=== PATIENT | male | born 1985 | race Caucasian/White ===

== ENCOUNTER 2016-07-06 13:16 | Emergency (ER) | payer SELFPAY ==
[~2016-07-06] VITALS: Ht 172.7 cm; Wt 79.4 kg
[~2016-07-06 13:16] MED LIST: ALBU17AE13 IH
[2016-07-06 13:34] VITALS: BP_SYST 125
[2016-07-06] MEDS ORDERED: BACITRACIN 1 GM OINT TP ONE (13:45)
[2016-07-06] MEDS ORDERED: LIDOCAINE/EPI 1% 1:100000 20 ML VIAL IJ ONE (13:45)
[2016-07-06] MEDS ORDERED: DIPH-TET-PERTUS Vaccine 0.5 ML VIAL (ADACEL) IM ONE (14:00)
[2016-07-06] MEDS ORDERED: IBUPROFEN 800 MG TABLET PO ONE (14:15)
[2016-07-06 14:32] VITALS: BP_SYST 122
== END 2016-07-06 14:32 | disposition home or self-care (01) ==
LOC: SED 13:16
DX: S51.812A Laceration without foreign body of left forearm, initial encounter (principal); X58.XXXA Exposure to other specified factors, initial encounter; Y93.89 Activity, other specified; Y99.8 Other external cause status; Y92.89 Other specified places as the place of occurrence of the external cause
CPT/HCPCS: 90715; 96372; 99284

== ENCOUNTER 2016-07-14 17:56 | Emergency (ER) | payer MEDICAID ==
[~2016-07-14] VITALS: Ht 172.7 cm; Wt 79.4 kg
[2016-07-14 18:06] VITALS: BP 127/71; PULSE 76; RESP 18; TEMP 98.3; O2SAT 96
[2016-07-14] MEDS ORDERED: BACITRACIN 1 GM OINT TP ONE (18:45)
[2016-07-14 18:53] VITALS: BP 127/71; PULSE 76; RESP 18; TEMP 98.3; O2SAT 96
== END 2016-07-14 18:53 | disposition home or self-care (01) ==
LOC: SED 17:56
DX: S51.812D Laceration without foreign body of left forearm, subsequent encounter (principal); J45.909 Unspecified asthma, uncomplicated; W22.8XXD Striking against or struck by other objects, subsequent encounter; Y92.89 Other specified places as the place of occurrence of the external cause; Y99.8 Other external cause status
CPT/HCPCS: 99282

== ENCOUNTER 2018-05-14 21:02 | Emergency (ER) | payer MEDICAID, OTHER ==
[~2018-05-14] VITALS: Ht 172.7 cm; Wt 86.2 kg
[2018-05-14 21:12] VITALS: BP_SYST 154
[2018-05-14] MEDS ORDERED: KETOROLAC TROMETHAMINE 30 MG VIAL IM ONE (22:15)
[2018-05-14] MEDS ORDERED: HYDROcodone/ACETAMIN 5-325 MG TAB (NORCO/ VICODIN) PO ONE (23:00)
[2018-05-14 23:47] VITALS: BP_SYST 154
== END 2018-05-14 23:50 | disposition home or self-care (01) ==
LOC: SED 21:02
DX: S39.011A Strain of muscle, fascia and tendon of abdomen, initial encounter (principal); J45.909 Unspecified asthma, uncomplicated; X58.XXXA Exposure to other specified factors, initial encounter; Y93.89 Activity, other specified; Y92.89 Other specified places as the place of occurrence of the external cause; Y99.8 Other external cause status
CPT/HCPCS: 96372; 99283; J1885

== ENCOUNTER 2018-12-23 10:30 | Emergency (ER) | payer SELFPAY ==
[~2018-12-23] VITALS: Ht 172.7 cm; Wt 86.2 kg
[2018-12-23 10:38] VITALS: BP_SYST 133
[2018-12-23 11:05] VITALS: BP_SYST 133
== END 2018-12-23 11:05 | disposition home or self-care (01) ==
LOC: SED 10:30
DX: L30.9 Dermatitis, unspecified (principal); J45.909 Unspecified asthma, uncomplicated; Z79.899 Other long term (current) drug therapy
CPT/HCPCS: 99283

== ENCOUNTER 2019-02-23 06:15 | Emergency (ER) | payer SELFPAY ==
[~2019-02-23] VITALS: Ht 172.7 cm; Wt 85.3 kg
[2019-02-23 06:17] VITALS: BP_SYST 151
--- NOTE | 2019-02-23 06:20 | NUR ---
Patient to ER bed 5 to gown for evaluation. Side rails up.
--- NOTE | 2019-02-23 06:25 | NUR ---
ER at bedside examining patient.
--- NOTE | 2019-02-23 06:25 | NUR ---
Pt brought in by mother. Pt awake, alert, oriented x4. pt brought to the ed by his mother. Pt chief complaint of chest tightness, episodic shortness of breath and wheezes resolved after productive cough, and a tightness that radiates from scalp to back of neck and shoulders, then across chest. pt denies nausea, vomiting, diarrhea, any other medical complaint at this time. Pt denies syncope. Pt states that he has been unable to sleep due to discomfort, and these symptoms began approx 18 hours ago. Pt vital signs stable. resting in ED bed, no acute distress noted at this time.
--- NOTE | 2019-02-23 06:40 | NUR ---
Xray bedside performing CXR
[2019-02-23] MEDS ORDERED: ALBU8.5H8 INH (06:58)
[2019-02-23] MEDS ORDERED: ARIP5TAB10 PO (06:58)
[2019-02-23] MEDS ORDERED: LORazepam 2 MG/ML VIAL IM ONE (07:15)
[2019-02-23 07:26] VITALS: BP_SYST 140
--- NOTE | 2019-02-23 07:26 | NUR ---
Patient given written and verbal discharge instructions and verbalizes understanding. ER MD discussed with patient the results and treatment provided. Patient in stable condition. ID arm band removed. No IV No RX given. Patient educated on pain management and to follow up with PMD. Pain Scale 0/10. Opportunity for questions provided and answered.
== END 2019-02-23 07:26 | disposition home or self-care (01) ==
LOC: SED 06:15
DX: F41.0 Panic disorder [episodic paroxysmal anxiety] (principal); R03.0 Elevated blood-pressure reading, without diagnosis of hypertension; Z71.6 Tobacco abuse counseling; J45.909 Unspecified asthma, uncomplicated; Z87.891 Personal history of nicotine dependence
CPT/HCPCS: 71045; 93005; 96372; 99283; J2060

== ENCOUNTER 2019-02-23 22:14 | Emergency (ER) | payer SELFPAY ==
[~2019-02-23] VITALS: Ht 172.7 cm; Wt 85.3 kg
[~2019-02-23 22:14] MED LIST changes: +ALBU8.5H8 INH; +ARIP5TAB10 PO
[2019-02-23 22:21] VITALS: BP_SYST 129
--- NOTE | 2019-02-23 22:28 | NUR ---
Patient triaged and placed in waiting room. VSS and patient appears in no acute distress at this time. Accompanied by mother, awaiting available bed, and MD notified of need for MSE.
--- NOTE | 2019-02-23 23:16 | NUR ---
Patient to ER bed 4 to gown for evaluation. Side rails up. Report given to Rossy RAMIREZ.
[2019-02-23] MEDS ORDERED: KETOROLAC TROMETHAMINE 60 MG/2 ML VIAL IM ONE (23:30)
--- NOTE | 2019-02-23 23:30 | NUR ---
Pt presents to ER with c/o head pressure, cough and fever. Pt A&Ox4. Pt states pressure in both sides of head. Pt states pain is 7/10. Pt states pain is exacerbated when pt sits up. Pt states pain radiates to chest intermittently. Pt states he was here this morning for same symptoms. Pt states cough for 2 days. Pt states intermittent fever. Pt temperature 99.4 via temperal scan upon assessment. Will continue to monitor.
--- NOTE | 2019-02-23 23:44 | NUR ---
ER Dr. Mcwilliams at bedside examining patient.
[2019-02-24 00:03] VITALS: BP_SYST 120
--- NOTE | 2019-02-24 00:03 | NUR ---
Note undone in EDM - 02/24/19 at 0600 by JOSE MARTIN Patient given written and verbal discharge instructions and verbalizes understanding. ER MD Mcwilliams discussed with patient the results and treatment provided. Patient in stable condition. ID arm band removed. Rx of given. Patient educated on pain management and to follow up with PMD. Pain Scale 0/10. Opportunity for questions provided and answered. Medication side effect fact sheet provided.
--- NOTE | 2019-02-24 00:03 | NUR ---
Patient given written and verbal discharge instructions and verbalizes understanding. ER MD Mcwilliams discussed with patient the results and treatment provided. Patient in stable condition. ID arm band removed. Rx of atarax, prednisone, and motrin given. Patient educated on pain management and to follow up with PMD. Pain Scale 0/10. Opportunity for questions provided and answered. Medication side effect fact sheet provided.
== END 2019-02-24 00:03 | disposition home or self-care (01) ==
LOC: SED 22:14
DX: J11.1 Influenza due to unidentified influenza virus with other respiratory manifestations (principal); J45.909 Unspecified asthma, uncomplicated; R51 Headache; R05 Cough
CPT/HCPCS: 96372; 99283; J1885; 93005

== ENCOUNTER 2019-02-28 07:09 | Emergency (ER) | payer SELFPAY ==
[~2019-02-28] VITALS: Ht 172.7 cm; Wt 88.5 kg
[~2019-02-28 07:09] MED LIST changes: -ALBU17AE13 IH
--- NOTE | 2019-02-28 07:25 | NUR ---
PT TO WR.
[2019-02-28 07:28] VITALS: BP_SYST 129
--- NOTE | 2019-02-28 09:30 | NUR ---
Patient to ER bed 7 to gown for evaluation. Side rails up. Report given to MARY RAMIREZ.
[2019-02-28] MEDS ORDERED: IPRATROPIUM/ALBUTEROL SULFATE 3 ML AMPUL.NEB (DUONEB) INH ONE ×2 (09:45→11:15)
--- NOTE | 2019-02-28 09:45 | NUR ---
Pt c/o unresolving HERNÁNDEZ. Pt has no acute distress noted.
[2019-02-28] MEDS ORDERED: KETOROLAC TROMETHAMINE 60 MG/2 ML VIAL IM ONE (10:15)
--- NOTE | 2019-02-28 10:30 | NUR ---
Pt ambulating around room, speaking in elevated voice with family at bedside with s/s of pain.
[2019-02-28] MEDS ORDERED: traMADol HCL HCL 50 MG TABLET (ULTRAM) PO ONE (11:15)
--- NOTE | 2019-02-28 12:00 | NUR ---
Pt tolerated medication well.
--- NOTE | 2019-02-28 12:13 | NUR ---
Patient given written and verbal discharge instructions and verbalizes understanding. ER MD discussed with patient the results and treatment provided. Patient in stable condition. ID arm band removed. Rx of Mortin, Promethazine, Amoxicillin, Tramdol given. Patient educated on pain management and to follow up with PMD. Pain Scale 3/10. Opportunity for questions provided and answered. Medication side effect fact sheet provided.
[2019-02-28 12:20] VITALS: BP_SYST 130
== END 2019-02-28 12:20 | disposition home or self-care (01) ==
LOC: SED 07:09
DX: J02.8 Acute pharyngitis due to other specified organisms (principal); B96.89 Other specified bacterial agents as the cause of diseases classified elsewhere
CPT/HCPCS: 71045; 94640; 96372; 99284; J1885; J7620

== ENCOUNTER 2021-12-07 13:24 | Emergency (ER) | payer SELFPAY ==
[~2021-12-07] VITALS: Ht 172.7 cm; Wt 109.8 kg
--- NOTE | 2021-12-07 13:30 | NUR ---
Placed in room 4 . Placed on front desk monitor, blood pressure machine and pulse oximeter. To gown for exam. Side rails up. Report given to JAMES MEDINA.
[2021-12-07 13:31] VITALS: BP_SYST 128
--- NOTE | 2021-12-07 13:32 | NUR ---
ER DR. PRICE EXAMINING PT
--- NOTE | 2021-12-07 13:33 | NUR ---
RT AT THE BEDSIDE FOR BREATHING TX
--- NOTE | 2021-12-07 13:35 | NUR ---
RECEIVED PT FROM JAMES AUGUSTINE. 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 PT HAS TACHYPNEA, EXPIRATORY WHEEZE NOTED. PT IS AAOX4, NORMAL S1S2, ON R/A. DENIES N/V/D/C. PERPHERAL PULSES NORMAL, NO EDEMA, SKIN WARM, INTACT. DENIES PAIN. SIDERAILS UP X2, BED IN LOWEST POSITION.
[2021-12-07] MEDS ORDERED: IPRATROPIUM BROM 0.5 MG/2.5 ML VIAL.NEB (ATROVENT) INH ONE ×2 (13:36→13:45)
[2021-12-07] MEDS ORDERED: ALBUTEROL SULFATE 0.083% 2.5 MG/3 ML VIAL.NEB INH ONE (13:45)
[2021-12-07] MEDS ORDERED: predniSONE 20 MG TABLET PO ONE (13:45)
--- NOTE | 2021-12-07 14:30 | NUR ---
SCHEDULED MED GIVEN ORDERED AND TOLERATED WELL.
[2021-12-07] MEDS ORDERED: ALBMDI INH (15:17)
[2021-12-07] MEDS ORDERED: PRED20TA PO (15:17)
--- NOTE | 2021-12-07 15:30 | NUR ---
Patient given written and verbal discharge instructions and verbalizes understanding. ER MD discussed with patient the results and treatment provided. Patient in stable condition. ID arm band removed. Rx of PREDNISONE/ALBUTEROL given. Patient educated on pain management and to follow up with PMD. Pain Scale 0/10. Opportunity for questions provided and answered. Medication side effect fact sheet provided.
[2021-12-07 15:40] VITALS: BP_SYST 135
== END 2021-12-07 15:40 | disposition home or self-care (01) ==
LOC: SED 13:24
DX: J45.901 Unspecified asthma with (acute) exacerbation (principal); R06.02 Shortness of breath; Z79.899 Other long term (current) drug therapy
CPT/HCPCS: 71045; 94640; 99283; J7512; J7613

== ENCOUNTER 2023-07-30 11:21 | Emergency (ER) | payer MEDICAID ==
[~2023-07-30] VITALS: Ht 172.7 cm; Wt 82.6 kg
[~2023-07-30 11:21] MED LIST changes: +ALBMDI INH; +PRED20TA PO
[2023-07-30 11:31] VITALS: BP_SYST 149; PULSE 110; RESP 20; TEMP 98.3; O2SAT 98
[2023-07-30 12:07] LABS: BASOPHILS # (AUTO) 0.1 K/uL (0.0-0.2); BASOPHILS % (AUTO) 0.8 % (0.0-2.0); EOSINOPHILS # (AUTO) 0.1 K/uL (0.0-0.4); EOSINOPHILS % (AUTO) 1.7 % (0.0-4.0); HEMATOCRIT 43.7 % (36-54); HEMOGLOBIN 14.7 g/dL (14.0-18.0); LYMPHOCYTES # (AUTO) 1.1 K/uL (1.0-5.5); LYMPHOCYTES % (AUTO) 13.6 % (20.5-51.5); MEAN CORPUSCULAR HEMOGLOBIN 31 pg (27-31); MEAN CORPUSCULAR HGB CONC 34 % (32-36); MEAN CORPUSCULAR VOLUME 91 fL (79.0-98.0); MONOCYTES # (AUTO) 0.4 K/uL (0.0-1.0); MONOCYTES % (AUTO) 5.2 % (1.7-9.3); NEUTROPHILS # (AUTO) 6.3 K/uL (1.8-7.7); NEUTROPHILS % (AUTO) 78.7 % (40.0-70.0); PLATELET COUNT (AUTO) 470 K/uL (130-430); RED BLOOD CELL COUNT(AUTO) 4.78 MIL/uL (4.2-6.2); WHITE BLOOD COUNT (AUTO) 8.1 K/uL (4.8-10.8)
[2023-07-30 12:21] LABS: ALANINE AMINOTRANSFERASE 31 U/L (12-78); ALBUMIN 3.3 g/dL (3.4-4.8); ANION GAP 11 (5-15); ASPARTATE AMINOTRANSFERASE 15 U/L (10-37); BILIRUBIN,DIRECT 0.1 mg/dL (0.0-0.3); CALCIUM 8.7 mg/dL (8.4-11.0); CARBON DIOXIDE 24 mmol/L (23-29); CHLORIDE 103 mmol/L (98-107); CREATINE KINASE, TOTAL 341 U/L (39-308); CREATININE 0.87 mg/dL (0.55-1.30); GFR AFRICAN AMERICAN 128 mL/min (>90); GLUCOSE 129 mg/dL (74-106); POTASSIUM 3.5 mmol/L (3.5-5.1); SALICYLATE 3 mg/dL (3-30); SODIUM SERUM 138 mmol/L (136-145); TOTAL BILIRUBIN 0.5 mg/dL (0.0-1.0); TOTAL PROTEIN, SERUM 7.2 g/dL (6.4-8.3); UREA NITROGEN, BLOOD 5 mg/dL (8-21)
[2023-07-30 12:22] LABS: ACETAMINOPHEN < 1 ug/mL (1-30); ALCOHOL, BLOOD < 3 mg/dL (<10); GFR NON AFRICAN-AMERICAN 106 mL/min (>90)
[2023-07-30 12:45] LABS: CKMB RELATIVE INDEX 1.2 (0.0-2.9)
[2023-07-30] MEDS ORDERED: ALPR0.5T PO (12:51)
[2023-07-30] MEDS: ALPRAZolam 0.25 MG TABLET PO ONE (13:18)
== END 2023-07-30 13:19 | disposition home or self-care (01) ==
LOC: SED 11:21
DX: F41.9 Anxiety disorder, unspecified (principal); J45.909 Unspecified asthma, uncomplicated; Z79.899 Other long term (current) drug therapy; Z79.2 Long term (current) use of antibiotics
CPT/HCPCS: 99283; 80076; 80048; 82550; 82553; 85025; 36415; G0482; G0480; G0481